=== PATIENT | male | born 1980 | race Hispanic/Latino ===

== ENCOUNTER 2022-04-16 13:39 | Inpatient (IN) | payer SELFPAY ==
[2022-04-16 15:08] LABS: Absolute Lymphocytes (CBC) 1.3 K/uL (0.7-4.9); Hematocrit 43.4 % (39.6-49.0); Lymphocytes % 5.7 % (15.3-44.8); MPV 9.3 fL (7.6-11.3); RBC Red Blood Cell Count 5.11 M/uL (4.33-5.43)
[2022-04-16 15:12] LABS: Protime INR 1.1
[2022-04-16] MEDS ORDERED: ONDANSETRON 4 MG/2 ML VIAL ONE (15:15)
[2022-04-16] MEDS ORDERED: MORPHINE 4 MG/ML SYR ONE ×2 (15:15→18:29)
--- NOTE | 2022-04-16 15:44 | RAD REPORT ---
EXAM DESCRIPTION: CTAbdomen Pelvis W Contrast - 04/16/2022 3:21 pm CLINICAL HISTORY: left buttock abscess COMPARISON: No comparisons TECHNIQUE: CT of the abdomen and pelvis was performed. All CT scans are performed using dose optimization technique as appropriate and may include automated exposure control or mA/KV adjustment according to patient size. FINDINGS: Lower chest: No acute abnormality. Liver: Hepatic steatosis Biliary: No biliary ductal dilatation. Stomach: No significant focal abnormality. Duodenum: No significant focal abnormality. Pancreas: No significant abnormality. Spleen: No significant abnormality. Adrenal: No suspicious lesions. Kidney/ureter: No hydronephrosis. No renal calculi. Retroperitoneum: No retroperitoneal adenopathy. Vascular: No aneurysm. Bowel: No significant focal abnormality. Normal appendix. Peritoneum: No ascites or free air. Bladder: Grossly unremarkable. Reproductive: No adnexal masses. Bones: No acute fracture. Other: Left buttock skin thickening. Subcutaneous fluid without rim enhancement measuring approximate ly 4.5 x 1.2 cm. IMPRESSION: Left buttocks cellulitis. A non rim enhancing pocket of fluid is identified. This likely represents phlegmon and early abscess formation rather than a well-defined abscess. No soft tissue g as.
--- NOTE | 2022-04-16 15:54 | RAD REPORT ---
EXAM DESCRIPTION: US - Extremity Nonvascular Limited - 04/16/2022 3:12 pm CLINICAL HISTORY: abscess COMPARISON: No comparisons FINDINGS: Subcutaneous edema present within the left buttocks. There is an approximately 11 mm pocke t of fluid noted which corresponds with the CT findings. IMPRESSION: Left buttocks cellulitis and approximately 1 cm pocket of fluid. Correlating with the sa -day CT, this may represent early abscess formation.
[2022-04-16 16:04] LABS: Albumin 3.7 g/dL (3.4-5.0); Bilirubin Direct 0.2 mg/dL (0-0.2); Bilirubin Total 0.6 mg/dL (0.2-1.0); Magnesium 2.1 mg/dL (1.8-2.4); Potassium 3.3 mmol/L (3.5-5.1); Protein, Total 8.2 g/dL (6.4-8.2)
[2022-04-16] MEDS ORDERED: POTASSIUM 25 MEQ EFFERV TAB ONE (16:22)
[2022-04-16] MEDS ORDERED: NA CHLORIDE 0.9% 100 ML IV ONE (16:22)
[2022-04-16] MEDS ORDERED: NA CHLORIDE 0.9% 1,000 ML ONE ×3 (16:22→19:54)
[2022-04-16] MEDS ORDERED: CEFEPIME 2 GM VIAL ONE (16:22)
--- NOTE | 2022-04-16 16:36 | ER ---
Nurse's Notes [facility] Name: Selwyn Beckett Age: 41 yrs Sex: Male : 1980 Arrival Date: 04/16/2022 Time: 13:41 Bed 11 Private MD: Diagnosis: Cutaneous abscess of buttock;Cellulitis of buttock Presentation: 04/16 13:54 Chief complaint: Abscess on buttock x 3 days. Coronavirus screen: At this time, the ss client does not indicate any symptoms associated with coronavirus-19. Ebola Screen: No symptoms or risks identified at this time. Risk Assessment: Do you want to hurt yourself or someone else? Patient reports no desire to harm self or others. Onset of symptoms was April 13, 2022. 13:54 Method Of Arrival: Ambulatory ss 13:54 Acuity: SHAILA 3 ss Historical: - Allergies: 13:55 No Known Allergies; ss - Home Meds: 13:55 None [Active]; ss - PMHx: 13:55 Ulcers; ss - PSHx: 13:55 None; ss - Immunization history:: Adult Immunizations up to date. - Social history:: Smoking status: Patient denies any tobacco usage or history of. Screenin:41 Abuse screen: Denies threats or abuse. Denies injuries from another. Nutritional iw screening: No deficits noted. Tuberculosis screening: No symptoms or risk factors identified. Fall Risk IV access (20 points). Assessment: 15:40 General: Appears in no apparent distress. Behavior is calm, cooperative. Pain: iw Complains of pain in buttocks. Neuro: Villaseñor Agitation-Sedation Scale (RASS): Level of Consciousness is awake, alert, obeys commands, Oriented to person, place, time, situation, Moves all extremities. Full function. Cardiovascular: Patient's skin is warm and dry. Respiratory: Respiratory effort is even, unlabored, Respiratory pattern is regular, symmetrical. Derm: Abscess located on gluteal cleft and left gluteus kiko is has no drainage, is red, is raised. Musculoskeletal: Range of motion: intact in all extremities. 16:41 Reassessment: Patient appears in no apparent distress at this time. Patient and/or iw family updated on plan of care and expected duration. Pain level reassessed. Patient is alert, oriented x 3, equal unlabored respirations, skin warm/dry/pink. Patient states feeling better. Patient states symptoms have improved. 18:30 Reassessment: Patient appears in no apparent distress at this time. Patient and/or iw family updated on plan of care and expected duration. Pain level reassessed. Patient is alert, oriented x 3, equal unlabored respirations, skin warm/dry/pink. pain is increasing, Alirio Melendez notified, new orders given. Vital Signs: 13:54 BP 165 / 109; Pulse 127; Resp 16; Temp 99.8; Pulse Ox 97% on R/A; Weight 117.93 kg; ss Height 5 ft. 9 in. (175.26 cm); Pain 10/10; 16:41 BP 129 / 83; Pulse 125; Resp 18; Temp 98.6; Pulse Ox 100% on R/A; Pain 4/10; iw 18:40 BP 136 / 89; Pulse 118; Resp 16; Temp 99.9; Pulse Ox 100% on R/A; iw 13:54 Body Mass Index 38.39 (117.93 kg, 175.26 cm) ED Course: 13:41 Patient arrived in ED. as 13:55 Triage completed. ss 13:55 Arm band placed on. ss 14:02 Alirio Melendez PA is PHCP. cp 14:02 Khai Rasmussen MD is Attending Physician. cp 14:55 Initial lab(s) drawn, by nh, sent to lab. First set of blood cultures drawn by nh. em1 Inserted saline lock: 20 gauge in left antecubital area, using aseptic technique. Blood collected. 15:00 Procalcitonin Sent. em1 15:00 Lactate Sent. em1 15:00 Basic Metabolic Panel Sent. em1 15:00 CBC with Diff Sent. em1 15:00 LFT's Sent. em1 15:00 Magnesium Sent. em1 15:00 PT-INR Sent. em1 15:13 Christel Lim, RN is Primary Nurse. iw 15:13 US Extrmty Nonvasular Limited: left buttock In Process Unspecified. EDMS 15:22 CT Abd/Pelvis - IV Contrast Only In Process Unspecified. EDMS 15:55 Second set of blood cultures drawn by me. tm3 16:[address] Epps aged for Alirio Pa to extension [id number]. eb 16:34 Lewis Garcia MD is Hospitalizing Provider. cp 17:02 EKG done, by ED staff. tm3 Administered Medications: 15:44 Drug: morphine 4 mg Route: IVP; Infused Over: 4 mins; Site: left antecubital; iw 16:10 Follow up: Response: No adverse reaction; Pain is decreased iw 15:44 Drug: Zofran (Ondansetron) 4 mg Route: IVP; Site: left antecubital; iw 16:10 Follow up: Response: No adverse reaction iw 16:41 Drug: NS 0.9% 1000 ml Route: IV; Rate: 1 bolus; Site: left antecubital; iw 16:41 Drug: Cefepime 2 grams Route: IVPB; Rate: 200 ml/hr; Infused Over: 30 mins; Site: left iw antecubital; 17:45 Follow up: IV Status: Completed infusion iw 16:41 Drug: Potassium Effervescent Tablet 25 mEq Route: PO; iw 17:10 Follow up: Response: No adverse reaction iw 18:05 Drug: vancoMYCIN 1.5 grams Route: IVPB; Rate: calculated rate; Site: left antecubital; iw 18:31 Not Given (Duplicate Order): morphine 4 mg IVP once over 4 mins iw 18:40 Drug: morphine 4 mg Route: IVP; Infused Over: 4 mins; Site: left antecubital; iw 19:01 Follow up: Response: No adverse reaction iw 19:00 Drug: Tylenol 1000 mg Route: PO; iw 19:14 Drug: NS 0.9% 1000 ml Route: IV; Rate: 1 bolus; Site: right antecubital; Outcome: 16:35 Decision to Hospitalize by Provider. cp 21:27 Patient left the ED. hb Signatures: Dispatcher [employer] EDMS HaoEdward temple tm3 Prerna Vital Irene, RN RN iw Hemanth Vital em1 Uma Tello RN RN ss Page, Corey, PA PA cp Baxter, Heather, RN RN Katrin Phan
--- NOTE | 2022-04-16 16:36 | EDPHYS ---
Physician Documentation [facility] Name: Selwyn Beckett Age: 41 yrs Sex: Male : 1980 Arrival Date: 04/16/2022 Time: 13:41 Bed 11 Private MD: ED Physician Khai Rasmussen HPI: 04/16 14:40 This 41 yrs old Male presents to ER via Ambulatory with complaints of Abscess. cp 14:40 The patient presents with an abscess of the left buttock, The patient presents with cp cellulitis of the left buttock. 14:40 Description: erythematous, swollen, warm. Onset: The symptoms/episode began/occurred 3 cp day(s) ago. Possible cause(s): unknown. Associated signs and symptoms: The patient has no apparent associated signs or symptoms. Severity of symptoms: in the emergency department the symptoms are unchanged, despite home interventions. Historical: - Allergies: 13:55 No Known Allergies; ss - Home Meds: 13:55 None [Active]; ss - PMHx: 13:55 Ulcers; ss - PSHx: 13:55 None; ss - Immunization history:: Adult Immunizations up to date. - Social history:: Smoking status: Patient denies any tobacco usage or history of. ROS: 14:45 Constitutional: Negative for body aches, chills, fever, poor PO intake. cp 14:45 Eyes: Negative for injury, pain, redness, and discharge. cp 14:45 Cardiovascular: Negative for chest pain, edema, palpitations. 14:45 Respiratory: Negative for cough, shortness of breath, wheezing. 14:45 Abdomen/GI: Negative for abdominal pain, nausea, vomiting, and diarrhea. 14:45 Skin: Positive for abscess, cellulitis, of the left buttock. 14:45 Neuro: Negative for altered mental status, dizziness, headache, weakness. Exam: 14:50 Constitutional: The patient appears in no acute distress, alert, awake, non-toxic, well cp developed, well nourished, obese, uncomfortable. 14:50 Head/Face: Normocephalic, atraumatic. cp 14:50 Chest/axilla: Inspection: normal. 14:50 Cardiovascular: Rate: tachycardic, Rhythm: regular. 14:50 Respiratory: the patient does not display signs of respiratory distress, Respirations: normal, no use of accessory muscles, no retractions, labored breathing, is not present, Breath sounds: are clear throughout, no decreased breath sounds, no stridor, no wheezing. 14:50 Abdomen/GI: Inspection: obese Palpation: abdomen is soft and non-tender, in all quadrants. 14:50 Back: pain, is absent, ROM is normal. 14:50 Skin: cellulitis, that is moderate, patchy, on the left buttock, induration, that is moderate is noted, located on the left buttock. 14:50 Neuro: Orientation: to person, place \T\ time. Mentation: is normal, Motor: moves all fours, strength is normal, Gait: is steady. Vital Signs: 13:54 BP 165 / 109; Pulse 127; Resp 16; Temp 99.8; Pulse Ox 97% on R/A; Weight 117.93 kg; ss Height 5 ft. 9 in. (175.26 cm); Pain 10/10; 16:41 BP 129 / 83; Pulse 125; Resp 18; Temp 98.6; Pulse Ox 100% on R/A; Pain 4/10; iw 18:40 BP 136 / 89; Pulse 118; Resp 16; Temp 99.9; Pulse Ox 100% on R/A; iw 13:54 Body Mass Index 38.39 (117.93 kg, 175.26 cm) ss MDM: 14:18 Patient medically screened. cp 15:00 Differential diagnosis: abscess, cellulitis, insect bite, sepsis. cp 16:32 Data reviewed: vital signs, nurses notes, lab test result(s), radiologic studies, CT cp scan, ultrasound. Physician consultation: Lewis Garcia MD was called at 16:32, was contacted at 16:32, regarding admission, to the medical/surgical unit. patient's condition, would like consultation with Dr. DR Epps. 04/16 14:35 Order name: Basic Metabolic Panel; Complete Time: 16:07 cp 04/16 16:07 Interpretation: Normal except: K 3.3; GLUC 140. cp 04/16 14:35 Order name: CBC with Diff; Complete Time: 15:20 cp 04/16 15:20 Interpretation: Normal except: WBC 22.00; JOSE DE JESUS% 86.6; LYM% 5.7; NEUT A 19.0; MNA 1.5. cp 04/16 14:35 Order name: LFT's; Complete Time: 16:07 04/16 16:08 Interpretation: Normal except: ALT 90; GLOB 4.5; A/G 0.8. 04/16 14:35 Order name: Magnesium; Complete Time: 16:07 04/16 14:35 Order name: PT-INR; Complete Time: 15:20 04/16 14:35 Order name: Blood Culture Adult (2) 04/16 14:35 Order name: US Extrmty Nonvasular Limited: left buttock; Complete Time: 15:55 04/16 14:35 Order name: Lactate; Complete Time: 16:07 04/16 16:10 Interpretation: Within normal limits: LAC 1.6. 04/16 14:35 Order name: Procalcitonin; Complete Time: 15:55 04/16 15:56 Interpretation: Reviewed. 04/16 14:36 Order name: CT Abd/Pelvis - IV Contrast Only; Complete Time: 15:55 04/16 15:56 Interpretation: Report reviewed. 04/16 16:17 Order name: SARS RAPID; Complete Time: 17:45 ss 04/16 16:29 Order name: CREATININE WHOLE BLOOD; Complete Time: 16:31 EDMS 04/16 14:35 Order name: EKG; Complete Time: 14:35 04/16 14:35 Order name: Cardiac monitoring; Complete Time: 16:52 04/16 14:35 Order name: EKG - Nurse/Tech; Complete Time: 17:15 04/16 14:35 Order name: IV Saline Lock; Complete Time: 15:00 04/16 14:35 Order name: Labs collected and sent; Complete Time: 15:00 04/16 14:35 Order name: O2 Per Protocol; Complete Time: 16:52 04/16 14:35 Order name: O2 Sat Monitoring; Complete Time: 16:52 cp Administered Medications: 15:44 Drug: morphine 4 mg Route: IVP; Infused Over: 4 mins; Site: left antecubital; iw 16:10 Follow up: Response: No adverse reaction; Pain is decreased iw 15:44 Drug: Zofran (Ondansetron) 4 mg Route: IVP; Site: left antecubital; iw 16:10 Follow up: Response: No adverse reaction iw 16:41 Drug: NS 0.9% 1000 ml Route: IV; Rate: 1 bolus; Site: left antecubital; iw 16:41 Drug: Cefepime 2 grams Route: IVPB; Rate: 200 ml/hr; Infused Over: 30 mins; Site: left iw antecubital; 17:45 Follow up: IV Status: Completed infusion iw 16:41 Drug: Potassium Effervescent Tablet 25 mEq Route: PO; iw 17:10 Follow up: Response: No adverse reaction iw 18:05 Drug: vancoMYCIN 1.5 grams Route: IVPB; Rate: calculated rate; Site: left antecubital; iw 18:31 Not Given (Duplicate Order): morphine 4 mg IVP once over 4 mins iw 18:40 Drug: morphine 4 mg Route: IVP; Infused Over: 4 mins; Site: left antecubital; iw 19:01 Follow up: Response: No adverse reaction iw 19:00 Drug: Tylenol 1000 mg Route: PO; iw 19:14 Drug: NS 0.9% 1000 ml Route: IV; Rate: 1 bolus; Site: right antecubital; hb Disposition Summary: 04/16/22 16:35 Hospitalization Ordered Hospitalization Status: Inpatient Admission cp Provider: Lewis Garcia cp Location: Telemetry/MedSurg (Inpatient) cp Condition: Stable cp Problem: new cp Symptoms: have improved cp Bed/Room Type: Standard cp Room Assignment: 208(04/16/22 20:40) cg Diagnosis - Cutaneous abscess of buttock cp - Cellulitis of buttock cp Forms: - Medication Reconciliation Form cp - SBAR form cp Signatures: Dispatcher [employer] Christel Arciniega RN RN Uma Tello RN RN ss Aubrey Hugo, ABDIAZIZ-C GRAIN I FARMWORKER-Cla1 Alirio Melendez PA PA cp Shayna Adamson RN RN cg Shira Huitron RN RN hb Corrections: (The following items were deleted from the chart) 20:40 16:35 cp cg
[2022-04-16] MEDS ORDERED: VANCOMYCIN 1.5 GM in NA CHLORIDE 0.9% 500 ML IVPB ONE (17:00)
[2022-04-16 17:09] LABS: SARS-CoV-2 Antigen Rapid Res Negative (Negative)
[2022-04-16] MEDS ORDERED: ACETAMINOPHEN 500 MG TAB ONE (18:58)
[2022-04-16] MEDS ORDERED: MORPHINE 2 MG/ML SYR IV PRN (21:34)
[2022-04-16] MEDS ORDERED: CEFEPIME 1 GM in NA CHLORIDE 0.9% 100 ML IV SCH (21:34)
--- NOTE | 2022-04-16 21:49 | P.HP ---
Certification for Inpatient Patient admitted to: Inpatient With expected LOS: >2 Midnights Patient will require the following post-hospital care: None Practitioner: I am a practitioner with admitting privileges, knowledge of patient current condition, hospital course, and medical plan of care. Services: Services provided to patient in accordance with Admission requirements found in Title 42 Section 412.3 of the Code of Federal Regulations <Aubrey Hugo - Last Filed: 04/16/22 21:46> Patient History Date of Service: 04/16/22 Reason for admission: Sepsis, abscess History of Present Illness: 41-year-old male with no significant past medical history presents to the emergency department for 4 days of left gluteal pain, suspected infection. He reports he began having fevers today he was evaluated in the emergency department his labs were significant for leukocytosis with white blood cell count of 22 hypokalemia with potassium 3.3 CT shows left buttock cellulitis. A 9 rim-enhancing pocket of fluid is identified. This is likely a phlegmon and early abscess ration rather than a well-defined abscess. No soft tissue gas. Ultrasound was also performed which revealed left buttock cellulitis with approximate 1 cm pocket of fluid which may represent early abscess ration. ED provider discussed case with general surgery who recommends IV antibiotics, admission with plan for incision and drainage tomorrow. 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, lives at home with his - Family History Family History: Reviewed- Non-Contributory - Social History Smoking Status: Never smoker Alcohol use: No CD- Drugs: No Caffeine use: Yes Place of Residence: Home <Aubrey Hugo - Last Filed: 04/16/22 21:46> Date of Service: 04/17/22 <Lewis Garcia - Last Filed: 04/17/22 15:50> Allergies No Known Aller Allergy (Uncoded 11/11/15 11:38) Unknown No Known Allergies Allergy (Uncoded 03/03/16 04:01) Unknown Review of Systems 10-point ROS is otherwise unremarkable General: Fever, Chills Musculoskeletal: As per HPI (Gluteal pain) Integumentary: Rash (Left gluteus) <Aubrey Hugo - Last Filed: 04/16/22 21:46> Physical Examination - Vital Signs Temperature: 99.8 F Blood Pressure: 165/109 Pulse: 127 Respirations: 16 - Physical Exam General: Alert, In no apparent distress, Oriented x3 HEENT: Atraumatic, PERRLA, Mucous membr. moist/pink, EOMI, Sclerae nonicteric Neck: Supple, 2+ carotid pulse no bruit, No LAD, Without JVD or thyroid abnormality Respiratory: Clear to auscultation bilaterally, Normal air movement Cardiovascular: Regular rate/rhythm, Normal S1 S2 Gastrointestinal: Normal bowel sounds, No tenderness Musculoskeletal: No tenderness Integumentary: Tenderness/swelling (Left gluteal area with area of induration, surrounding cellulitis), Erythema, Warmth Neurological: Normal gait, Normal speech, Normal strength at 5/5 x4 extr, Normal tone, Normal affect Lymphatics: No axilla or inguinal lymphadenopathy - Studies Laboratory Data (last 24 hrs) 04/16/22 14:55: PT 12.1, INR 1.10 04/16/22 14:55: WBC 22.00 H*, Hgb 14.3, Hct 43.4, Plt Count 244 04/16/22 14:55: Sodium 136, Potassium 3.3 L, BUN 14, Creatinine 0.90, Glucose 140 H, Magnesium 2.1, Total Bilirubin 0.6, AST 34, ALT 90 H, Alkaline Phosphatase 112 <Aubrey Hugo - Last Filed: 04/16/22 21:46> - Studies Laboratory Data (last 24 hrs) 04/16/22 14:55: Sodium 136, Potassium 3.3 L, BUN 14, Creatinine 0.90, Glucose 140 H, Magnesium 2.1, Total Bilirubin 0.6, AST 34, ALT 90 H, Alkaline Phosphatase 112 <Lewis Garcia - Last Filed: 04/17/22 15:50> Assessment and Plan - Plan Assessment: Sepsis secondary to left gluteal cellulitis, abscess Plan: Sepsis secondary to left gluteal cellulitis, abscess: N.p.o., IVF, as needed pain medications, IV antibiotics with vancomycin/cefepime. Surgical consult in place anticipate incision and drainage tomorrow. Met SIRS criteria for tachy cardia, leukocytosis with source of infection present lactic acid less than 2 no endorgan damage. DVT PPX: SCD Code status: Full Discharge Plan: Home Plan to discharge in: 48 Hours - Advance Directives Does patient have a Living Will: No Does patient have a Durable POA for Healthcare: No - Code Status/Comfort Care Code Status Assessed: Yes (Full code) Critical Care: No Time Spent Managing Pts Care (In Minutes): 55 <Aubrey Hugo - Last Filed: 04/16/22 21:46> Physician Review: Patient Assessed, Agree with Above Assessment and Plan <Lewis Garcia - Last Filed: 04/17/22 15:50>
[2022-04-16] MEDS: Ringers Lactate 1,000 ML IV SCH (21:51)
[2022-04-16 21:55] VITALS: BMI 39.2
[2022-04-16] MEDS: ONDANSETRON 4 MG/2 ML VIAL IV PRN (22:29)
[2022-04-17 04:15] LABS: Absolute Lymphocytes (CBC) 1.8 K/uL (0.7-4.9); Hematocrit 36.9 % (39.6-49.0); Lymphocytes % 10.5 % (15.3-44.8); MPV 9.3 fL (7.6-11.3); RBC Red Blood Cell Count 4.35 M/uL (4.33-5.43)
[2022-04-17 04:31] LABS: Albumin 2.7 g/dL (3.4-5.0); Bilirubin Total 0.6 mg/dL (0.2-1.0); Potassium 3.7 mmol/L (3.5-5.1); Protein, Total 6.5 g/dL (6.4-8.2)
[2022-04-17] MEDS: Ringers Lactate 1,000 ML IV SCH ×2 (04:38→12:33)
[2022-04-17] MEDS: ONDANSETRON 4 MG/2 ML VIAL IV PRN (04:44)
[2022-04-17] MEDS ORDERED: CEFEPIME 1 GM in NA CHLORIDE 0.9% 100 ML IV SCH (05:00)
[2022-04-17] MEDS ORDERED: KCL 20 MEQ/100 mL IVPB 20 MEQ/100 ML BAG IV SCH (06:00)
[2022-04-17] MEDS ORDERED: CEFAZOLIN SODIUM 1 GM/VIAL ONE (08:07)
--- NOTE | 2022-04-17 08:18 | P.OP ---
Date of Service: 04/17/22 Reason for consult: Left buttock pain History of present illness: Patient is a 41-year-old gentleman presented to the emergency room with 3 to 4-day history of left buttock pain associated with redness, warmth, increasing pain and minimal discharge. Patient denies any history of trauma or insect bite. Patient denies nausea, vomiting, diarrhea, constipation, blood in his stool, dysuria or hematuria. Patient denies sore throat, runny nose, cough, headaches, dizziness, chest pain but patient has low- grade fever symptoms yesterday. Review of systems: Otherwise unremarkable Past medical history: Negative Past surgical history: Negative Allergies: None none Social history: Patient does smoke has been counseled and drinks alcohol occasionally Family history: Noncontributory Vital signs: Stable, afebrile Physical exam: Awake alert oriented x3 Head and neck exam: No masses Chest: Clear Heart: S1-S2 Abdomen: Soft, nondistended, nontender, positive bowel sounds Extremity: Neurovascular intact, nontender Neuro: Nonfocal : Back patient has a large 10 x 6 cm area of erythema, edema, tenderness and fluctuance in the center with minimal discharge Diagnostic data: White count was 22,000 on admission, this morning is down to 17,000 CT and ultrasound reviewedconsistent with abscess and cellulitis Assessment: Left buttock abscess with cellulitis Plan/recommendation: Admit, n.p.o., IV fluids, IV antibiotics and to the OR for incision, drainage and debridement of the left buttock abscess. Patient understands risk benefits alternatives and agrees to procedure. CC:
[2022-04-17] MEDS ORDERED: VANCOMYCIN 1 GM in NA CHLORIDE 0.9% 250 ML IVPB SCH (09:00)
[2022-04-17] MEDS ORDERED: propofoL 200 MG/20 ML VIAL IV ONE (09:09)
[2022-04-17] MEDS ORDERED: dexAMETHasone 10 MG/ML VIAL ONE (09:10)
[2022-04-17] MEDS ORDERED: LIDOCAINE 2% MPF 5 ML VIAL ONE (09:10)
[2022-04-17] MEDS ORDERED: KETOROLAC 30 MG/ML INJ ONE (09:10)
[2022-04-17] MEDS ORDERED: FENTANYL CITR 100 MCG/2 ML ONE ×2 (09:10→09:44)
[2022-04-17] MEDS ORDERED: ONDANSETRON 4 MG/2 ML VIAL ONE (09:11)
--- NOTE | 2022-04-17 10:09 | P.OP ---
Date of Service: 04/17/22 Preop diagnosis: Left buttock abscess Postop diagnosis: Left buttock abscess with necrotizing infection Procedure performed: Incision and drainage with excisional debridement of left buttock abscess approximately 8 x 4 cm to the deep subcutaneous tissue Surgeon: Kenny Epps MD Computer Programming Professor: None Estimated blood loss: Minimal Specimen: Pus and necrotic tissue Findings: Necrotizing infection of the left buttocks with abscess and cellulitis Anesthesia: General Complications: None Drains: None Fluids and blood products: Nonapplicable Disposition: Recovery room Operative note: Patient brought to the OR and placed in the supine position. General anesthesia begun. Patient placed in the lithotomy position. Patient prepped and draped in the usual sterile fashion. Marcaine 0.5% was infiltrated locally for postop pain control. Then a 8 x 4 cm incision was made around the necrotic tissue that was in the center. Pus under pressure was evacuated. Loculations were broken. Necrotic tissue was debrided until healthy tissue was encountered. Bleeding was controlled with cautery. Wound was irrigated. Wet- to-dry normal saline dressing change applied. Patient tolerated procedure in stable condition taken to recovery room in good general condition. CC:
[2022-04-17] MEDS ORDERED: HYDROMORPHONE HCL 1 MG/ML INJ IV PRN (10:52)
[2022-04-17] MEDS ORDERED: ONDANSETRON 4 MG/2 ML VIAL IV PRN (10:52)
[2022-04-17] MEDS ORDERED: HYDROCODONE/APAP 7.5/325 MG TAB PO PRN (10:52)
[2022-04-17 11:40] VITALS: O2SAT 97
--- NOTE | 2022-04-17 15:29 | P.PN ---
Subjective Date of Service: 04/17/22 Chief Complaint: Sepsis, abscess He was seen in the PACU follow-up surgery. He reports that he feels well and that his pain is well-controlled. He denies any particular concerns at this time. Review of Systems 10-point ROS is otherwise unremarkable Musculoskeletal: Other (buttock pain) Integumentary: Other (left buttock abscess) Physical Examination - Vital Signs Temperature: 97.5 F Blood Pressure: 125/68 Pulse: 77 Respirations: 16 Pulse Ox (%): 97 - Physical Exam General: Alert, In no apparent distress, Oriented x3 HEENT: Atraumatic, PERRLA, Mucous membr. moist/pink, EOMI, Sclerae nonicteric Neck: Supple, JVD not distended Respiratory: Clear to auscultation bilaterally, Normal air movement Cardiovascular: No edema, Regular rate/rhythm, Normal S1 S2, No gallops, No rubs, No murmurs Gastrointestinal: Normal bowel sounds, Soft and benign, Non-distended, No tenderness, No rebound, No guarding Musculoskeletal: No clubbing Integumentary: Other (surgical site covered in clean surgical dressing) Neurological: Normal speech, Cranial nerves 3-12 intact, Normal affect - Studies Laboratory Data (last 24 hrs) 04/16/22 14:55: Sodium 136, Potassium 3.3 L, BUN 14, Creatinine 0.90, Glucose 140 H, Magnesium 2.1, Total Bilirubin 0.6, AST 34, ALT 90 H, Alkaline Phosphatase 112 Assessment And Plan - Plan # Sepsis likely secondary to Left Gluteal Purulent Cellulitis with Abscess # Obesity - BMI 39.2 kg/m2 He met sepsis criteria based on HR > 90 bpm and WBC > 12,000 and the identified source is a soft tissue skin infection. - Sepsis order set was initiated - US = "left buttocks cellulitis and approximately 1 cm pocket of fluid. Correlating with the sameday CT, this may represent early abscess formation." - CT abdomen/pelvis = "left buttocks cellulitis. A non rim enhancing pocket of fluid is identified. This likely represents phlegmon and early abscess formation rather than a well-defined abscess. No soft tissue gas." - Initial Lactate was 1.6 - Blood cultures drawn before antibiotics were given - Broad spectrum antibiotics started: vancomycin + cefepime - In regards to fluids: - 30 mL/kg of IV fluids was not administered given SBP > 90, MAP > 65, lactic acid < 4 - General Surgery consulted and spoke with Dr. Epps - recommendations appreciated - s/p I&D this morning Lewis Garcia M.D.
[2022-04-17 16:19] VITALS: BP 138/81; TEMP 98.1
--- NOTE | 2022-04-17 19:10 | P.DS ---
Admission Date: 04/16/22 Discharge Date: 04/17/22 Reason for Admission: Sepsis, abscess Consultations: Dr. Epps Procedures: I&D left buttocks abscess/cellulitis Brief History of Present Illness: 41-year-old male with no significant past medical history presents to the emergency department for 4 days of left gluteal pain, suspected infection. He reports he began having fevers today he was evaluated in the emergency department his labs were significant for leukocytosis with white blood cell count of [address]ok[address]emia with potassium 3.3 CT shows left buttock cellulitis. A 9 rim-enhancing pocket of fluid is identified. This is likely a phlegmon and early abscess ration rather than a well-defined abscess. No soft tissue gas. Ultrasound was also performed which revealed left buttock cellulitis with approximate 1 cm pocket of fluid which may represent early abscess ration. ED provider discussed case with general surgery who recommends IV antibiotics, admission with plan for incision and drainage tomorrow. Hospital Course: After patient's surgical incision and drainage he eloped from the floor he was last seen around 1630, he did not notify any staff he was leaving, it was unclear if he left with his IV intact or not. He was contacted by phone and it was found that he still had his IV in place he was instructed to return to the hospital/emergency department for removal of IV, patient refused readmission stated he want to stay at home. ED physician currently evaluating patient plan is to remove IV and give him prescription for Augmentin for 10 days. Patient again declined admission. <Aubrey Hugo - Last Filed: 04/17/22 19:07> Admission Date: 04/16/22 Discharge Date: 04/18/22 <Lewis Garcia - Last Filed: 04/18/22 16:26> Disposition: AMA-LEFT AGAINST MEDICAL ADVIC Discharge Condition: FAIR Vital Signs/Physical Exam: Temp Pulse Resp BP Pulse Ox 98.1 F 85 16 138/81 96 04/17/22 16:00 04/17/22 16:00 04/17/22 16:00 04/17/22 16:00 04/17/22 16:00 Laboratory Data at Discharge: WBC 17.00 K/uL (4.3-10.9) H 04/17/22 03:56 Hgb 12.5 g/dL (13.6-17.9) L D 04/17/22 03:56 Hct 36.9 % (39.6-49.0) L 04/17/22 03:56 Plt Count 235 K/uL (152-406) 04/17/22 03:56 PT 12.1 SECONDS (9.5-12.5) 04/16/22 14:55 INR 1.10 04/16/22 14:55 Sodium 138 mmol/L (136-145) 04/17/22 03:56 Potassium 3.7 mmol/L (3.5-5.1) 04/17/22 03:56 BUN 9 mg/dL (7-18) 04/17/22 03:56 Creatinine 0.69 mg/dL (0.55-1.3) 04/17/22 03:56 Glucose 145 mg/dL (74-106) H 04/17/22 03:56 Magnesium 2.1 mg/dL (1.8-2.4) 04/16/22 14:55 Total Bilirubin 0.6 mg/dL (0.2-1.0) 04/17/22 03:56 AST 23 U/L (15-37) 04/17/22 03:56 ALT 71 U/L (12-78) 04/17/22 03:56 Alkaline Phosphatase 100 U/L (45-117) 04/17/22 03:56 <Aubrey Hugo - Last Filed: 04/17/22 19:07> Vital Signs/Physical Exam: Temp Pulse Resp BP Pulse Ox 98.1 F 85 16 138/81 96 04/17/22 16:00 04/17/22 16:00 04/17/22 16:00 04/17/22 16:00 04/17/22 16:00 Laboratory Data at Discharge: WBC 17.00 K/uL (4.3-10.9) H 04/17/22 03:56 Hgb 12.5 g/dL (13.6-17.9) L D 04/17/22 03:56 Hct 36.9 % (39.6-49.0) L 04/17/22 03:56 Plt Count 235 K/uL (152-406) 04/17/22 03:56 PT 12.1 SECONDS (9.5-12.5) 04/16/22 14:55 INR 1.10 04/16/22 14:55 Sodium 138 mmol/L (136-145) 04/17/22 03:56 Potassium 3.7 mmol/L (3.5-5.1) 04/17/22 03:56 BUN 9 mg/dL (7-18) 04/17/22 03:56 Creatinine 0.69 mg/dL (0.55-1.3) 04/17/22 03:56 Glucose 145 mg/dL (74-106) H 04/17/22 03:56 Magnesium 2.1 mg/dL (1.8-2.4) 04/16/22 14:55 Total Bilirubin 0.6 mg/dL (0.2-1.0) 04/17/22 03:56 AST 23 U/L (15-37) 04/17/22 03:56 ALT 71 U/L (12-78) 04/17/22 03:56 Alkaline Phosphatase 100 U/L (45-117) 04/17/22 03:56 <Lewis Garcia - Last Filed: 04/18/22 16:26> <Aubrey Hugo - Last Filed: 04/17/22 19:07> Physician Review: Patient Assessed, Agree with Above Assessment and Plan <Lewis Garcia - Last Filed: 04/18/22 16:26> Home Medications: NK [No Home Meds] 04/16/22 Followup: NONE,NONE [Primary Care Provider] -
--- NOTE | 2022-04-19 15:14 | EKG ---
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
--- NOTE | 2022-04-22 18:14 | P.PN ---
Date of Service: 04/01/22 I have become aware that his wound culture tested positive for Staphylococcus Lugdunesis, resistant to penicillin. I called Mr. Beckett to follow-up. He states that he feels like his wound is improving and he is scheduled to see Dr. Epps on 04/27/2022. I have called in a prescription for cefadroxil 1 g PO BID, # 10 tabs, 0 refills to [facility] pharmacy. Lewis Garcia M.D.
== END 2022-04-17 18:22 | disposition left against medical advice (07) | DRG 854 ==
LOC: ER 13:39 → ERHOLD 18:25 → 2ND 21:17
PROVIDERS: ADMIT Internal Medicine; ATTEND Internal Medicine
PROC: 0JB90ZZ Excision of Buttock Subcutaneous Tissue and Fascia, Open Approach (ICD-10-PCS; principal; 2022-04-17 09:00)
DX: A41.1 Sepsis due to other specified staphylococcus (principal); L02.31 Cutaneous abscess of buttock; L03.317 Cellulitis of buttock; Z16.11 Resistance to penicillins; E87.6 Hypokalemia; E66.9 Obesity, unspecified; Z68.39 Body mass index [BMI] 39.0-39.9, adult; Z53.29 Procedure and treatment not carried out because of patient's decision for other reasons; Z20.822 Contact with and (suspected) exposure to COVID-19
CPT/HCPCS: 36415; 74177; 76882; 80048; 80053; 80076; 82565; 83036; 83605; 83735; 84145; 85025; 85610; 87040; 87070; 87075; 87077; 87186; 87205; 87811; 88304; 93005; 94010; 96365; 96375; 99284; J0690; J0692; J1100; J2001; J2270; J2405; J2704; J3010; J3370; J3480; J7030; J7040; J7050; J7120; Q9967

== ENCOUNTER 2022-04-17 18:31 | Emergency (ER) | payer SELFPAY ==
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
--- NOTE | 2022-04-17 19:12 | ER ---
Nurse's Notes [facility] Name: Selwyn Beckett Age: 41 yrs Sex: Male : 1980 Arrival Date: 04/17/2022 Time: 18:32 Bed Waiting Private MD: Diagnosis: Cutaneous abscess of buttock Presentation: 04/17 18:50 Chief complaint: Patient states: Pt was inpatient and eloped, nursing staff contacted aa5 pt to come back to get IV removed, pt removed IV prior to arrival to ER. Pt states he is here for antibiotic prescription. 18:50 Coronavirus screen: At this time, the client does not indicate any symptoms associated aa5 with coronavirus-19. Ebola Screen: Patient denies travel to an Ebola-affected area in the 21 days before illness onset. Initial Sepsis Screen: Does the patient meet any 2 criteria? HR > 90 bpm. Does the patient have a suspected source of infection? Yes:. Risk Assessment: Do you want to hurt yourself or someone else? Patient reports no desire to harm self or others. Onset of symptoms was April 17, 2022. 18:50 Method Of Arrival: Ambulatory aa5 18:50 Acuity: SHAILA 5 aa5 Vital Signs: 18:50 BP 153 / 94; Pulse 105; Resp 20 S; Temp 98.9(TE); Pulse Ox 97% on R/A; aa5 ED Course: 18:32 Patient arrived in ED. as 18:47 Katarzyna Alvarado MD is Attending Physician. sd2 18:47 Kenny Epps MD is Referral Physician. sd2 18:50 Arm band placed on. aa5 19:10 No provider procedures requiring assistance completed. Patient did not have IV access aa5 during this emergency room visit. 19:13 Triage completed. aa5 Administered Medications: No medications were administered Outcome: 18:48 Discharge ordered by . sd2 19:10 Discharged to home ambulatory. aa5 19:10 Condition: stable 19:10 Discharge instructions given to patient, Instructed on discharge instructions, follow up and referral plans. wound care, Demonstrated understanding of instructions, follow-up care, medications, Prescriptions given X 1. 19:11 Patient left the ED. aa5 Signatures: Prerna Vital Audri RN RN aa5 Katarzyna Alvarado MD MD sd2 Corrections: (The following items were deleted from the chart) 19:15 18:50 Chief complaint: Patient states: Pt was inpatient and eloped, nursing staff aa5 contacted pt to come back to get IV removed, pt removed IV prior to arrival to ER. aa5
== END 2022-04-17 19:11 | disposition home or self-care (01) ==
LOC: ER 18:31
DX: L02.31 Cutaneous abscess of buttock (principal)
CPT/HCPCS: 99282